=== PATIENT | female | born 1995 | race Caucasian/White ===

== ENCOUNTER 2022-06-16 20:44 | Emergency (ER) | payer OTHER | END 2022-06-16 22:02 | disposition home or self-care (01) | LOC: ER1 20:44 | DX: L25.8 Unspecified contact dermatitis due to other agents (principal); F17.210 Nicotine dependence, cigarettes, uncomplicated; I10 Essential (primary) hypertension; Z88.8 Allergy status to other drugs, medicaments and biological substances | CPT/HCPCS: 99282 ==